=== PATIENT | female | born 1980 | race Two or more races ===

== ENCOUNTER 2017-09-11 14:01 | Emergency (ER) | payer OTHER ==
--- NOTE | 2017-09-11 14:36 | EDPHY ---
H & P Time Seen by Provider: 09/11/17 14:14 HPI/ROS: CHIEF COMPLAINT: Left hand numbness and weakness HISTORY OF PRESENT ILLNESS: 37-year-old woman had symptoms starting 8 days ago after she lifted a laptop with her left hand. Started having spasm in her left hand the next day and weakness or numbness and pins and needles in that left hand. She was seen on Tuesday at urgent care after she had to leave work. The she was given a muscle relaxant some exercises and saw her primary care doctor on Dr. Syl Rose. She felt she was getting better with the some physical therapy exercises and then today felt worse. She has pins and needles feeling in her left arm and hand. She developed some associated tenderness in the medial portion of her left forearm. Weakness in the left hand and really only able to pickle solution maker a tube of toothpaste but not squeeze it. Symptoms moderate to severe today, not associated with headache or any right arm symptoms. She did have some right foot numbness and tingling in her toes earlier today which is gone now. REVIEW OF SYSTEMS: Eye: no change in vision ENT: no sore throat Cardiac: no chest pain or syncope Pulmonary: no cough or SOB Abdomen: no vomiting, diarrhea, abdominal pain Musculoskeletal: No back or neck pain Skin: no rash Neuro: no headache Constitutional: no fever : no urinary symptoms A comprehensive 10 point review of systems is otherwise negative aside from elements mentioned in the history of present illness. PAST MEDICAL HISTORY: Negative Social history: General Appearance: Alert and conversant, cooperative. Eyes: No scleral icterus. ENT, Mouth: Normal mucous membranes. Respiratory: Normal respiratory effort, breath sounds equal, lungs are clear to auscultation. Cardiovascular: Regular rate and rhythm. Normal radial pulses in both arms. Gastrointestinal: Abdomen is soft and non tender. Neurological: Alert, face symmetric, ambulatory. Her right arm has normal strength in deltoid, triceps, biceps, wrist extensors, and intrinsics. Her left hand has inability to maintain intrinsic strength or make a [place] with her thumb and index finger. She has weak general accounting manager strength. Her reflexes and patellar 2+ symmetric and toes are downgoing. She is ambulatory. Sensation is intact to light touch in radial ulnar and medial nerve distributions of the left hand. Skin: Warm and dry, no rashes. Musculoskeletal: Compartments are soft in both upper extremities but she has a little bit of tenderness on the medial volar forearm on the left side. Psychiatric: Appears very tearful and anxious. Emergency Department course/MDM: Patient has weakness in the left hand or arm and it is not clear whether this is peripheral neuropathy, spinal cord related, or central neurologic. MRI cervical spine and brain discussed and consented. Will also get ultrasound of the left arm and labs to include CPK. 1615: MRI per [facility] does not show explanation for the patient's symptoms, cervical spine has some stenosis at C5-6 and C6-7. 1545: Discussed with Dr. Lim, he feels that the MRI findings do not explain the patient's symptoms and she is unlikely to have a brain or cervical spine reason for weakness. Patient is re-examined and still has weakness in dorsiflexion of her wrist, intrinsics, and opposing her thumb and index finger. She does however say she feels better compared to when she got here. 1706: Discussed with neurologist Dr. Chidi Fournier, his recommendation to go with plan to [place] with office followup this week. Likely peripheral neuropathy. Heart rate noted as increased initially, think this is most likely due to the fact that she was anxious and upset on arrival. Smoking Status: Never smoked Constitutional: Initial Vital Signs Temperature (C) 36.7 C 09/11/17 14:01 Heart Rate 122 H 09/11/17 14:01 Respiratory Rate 18 09/11/17 14:01 Blood Pressure 157/95 H 09/11/17 14:01 O2 Sat (%) 99 09/11/17 14:01 O2 Delivery Mode Room Air Allergies/Adverse Reactions: latex Allergy (Verified 09/11/17 14:08) Home Medications: Medication Instructions Recorded Advil 09/11/17 Diazepam 09/11/17 Medical Decision Making - Diagnostics Imaging Results: Imaging Impressions Brain MRI 09/11/17 14:31 Impression: 1. No acute intracranial findings. 2. Nonspecific punctate white matter hyperintensities which can be seen with chronic microvascular ischemic gliosis, sequela of migraines, demyelination, vasculitis, or other etiology. Findings discussed with Arelis White MD on September 11, 2017 at 1614 hours. Cervical Spine MRI 09/11/17 14:31 Impression: 1. C6-C7: Moderate focal right paracentral disk protrusion contacting the ventral surface of the spinal cord without cord compression, with moderate spinal canal narrowing and mild bilateral neural foraminal stenosis. 2. C5-C6: Moderate spinal canal narrowing with mild to moderate right neural foraminal stenosis. 3. Congenital spinal canal narrowing. 4. Additional multilevel degenerative changes, as above. Findings discussed with Arelis White MD on September 11, 2017 at 1614 hours. Extremity Venous Study 09/11/17 14:31 Impression: No evidence of DVT. Findings discussed with ARELIS WHITE 09/11/2017 at 16:56. Imaging: Discussed imaging studies w/ call or contact centre team leader Radiologist Differential Diagnosis: Differential considered including but not limited to ischemic stroke, intracranial mass or bleed, demyelinating or vasculitis [employer] disease, transverse myelitis, spinal cord compression, peripheral neuropathy, vascular problem - Data Points Laboratory Results: Laboratory Results 09/11/17 14:45 09/11/17 14:45 09/11/17 09/11/17 09/11/17 14:45 14:45 14:45 WBC 10.24 10^3/uL H 10^3/uL (3.80-9.50) RBC 4.82 10^6/uL 10^6/uL (4.18-5.33) Hgb 15.2 g/dL g/dL (12.6-16.3) Hct 44.1 % % (38.0-47.0) MCV 91.5 fL fL (81.5-99.8) MCH 31.5 pg pg (27.9-34.1) MCHC 34.5 g/dL g/dL (32.4-36.7) RDW 11.9 % % (11.5-15.2) Plt Count 304 10^3/uL 10^3/uL (150-400) MPV 10.5 fL fL (8.7-11.7) Neut % (Auto) 65.5 % % (39.3-74.2) Lymph % (Auto) 27.8 % % (15.0-45.0) [place] % (Auto) 5.0 % % (4.5-13.0) Eos % (Auto) 1.0 % % (0.6-7.6) Baso % (Auto) 0.3 % % (0.3-1.7) Nucleat RBC Rel Count 0.0 % % (0.0-0.2) Absolute Neuts (auto) 6.71 10^3/uL H 10^3/uL (1.70-6.50) Absolute Lymphs (auto) 2.85 10^3/uL 10^3/uL (1.00-3.00) Absolute Monos (auto) 0.51 10^3/uL 10^3/uL (0.30-0.80) Absolute Eos (auto) 0.10 10^3/uL 10^3/uL (0.03-0.40) Absolute Basos (auto) 0.03 10^3/uL 10^3/uL (0.02-0.10) Absolute Nucleated RBC 0.00 10^3/uL 10^3/uL (0-0.01) Immature Gran % 0.4 % % (0.0-1.1) Immature Gran # 0.04 10^3/uL 10^3/uL (0.00-0.10) Sodium 141 mEq/L mEq/L (135-145) Potassium 3.9 mEq/L mEq/L (3.5-5.2) Chloride 102 mEq/L mEq/L (97-110) Carbon Dioxide 23 mEq/l mEq/l (22-31) Anion Gap 16 mEq/L mEq/L (8-16) BUN 11 mg/dL mg/dL (7-23) Creatinine 0.8 mg/dL mg/dL (0.6-1.0) Estimated GFR > 60 Glucose 97 mg/dL mg/dL (70-100) Calcium 9.8 mg/dL mg/dL (8.5-10.4) Creatine Kinase 40 IU/L IU/L (0-156) Beta HCG, Qual NEGATIVE Medications Given: Discontinued Medications Lorazepam (Ativan Injection) 1 mg IVP EDNOW ONE Stop: 09/11/17 15:11 Last Admin: 09/11/17 15:20 Dose: 1 mg Departure - Departure Disposition: Home, Routine, Self-Care Clinical Impression: Neuropathy of left upper extremity Condition: Good Instructions: Magnetic Resonance Imaging (ED) Referrals: Syl Rose MD [Primary Care Provider] - As per Instructions Chidi Fournier MD [Medical Doctor] - As per Instructions
[2017-09-11 14:56] LABS: PLATELET COUNT 304 10^3/uL (150-400)
[2017-09-11 15:06] LABS: CREATINE KINASE 40 IU/L (0-156)
[2017-09-11] MEDS ORDERED: LORazepam 2 MG/ML INJ IVP ONE (15:10)
[2017-09-11 16:24] VITALS: BP 121/87
== END 2017-09-11 17:15 | disposition home or self-care (01) ==
DX: G56.92 Unspecified mononeuropathy of left upper limb (principal); Z91.040 Latex allergy status
CPT/HCPCS: 96374; J2060

== ENCOUNTER → 2017-09-13 | Outpatient (CLI) | payer OTHER | LOC: FLAB 08:53 | PROVIDERS: ATTEND Family Medicine | DX: M79.9 Soft tissue disorder, unspecified (principal); R52 Pain, unspecified; R60.9 Edema, unspecified; L73.2 Hidradenitis suppurativa ==